=== PATIENT | female | born 1980 | race Caucasian/White ===

== ENCOUNTER 2022-09-10 09:36 | Emergency (ER) | payer OTHER ==
[2022-10-04 21:52] LABS: ESTIMATED GFR 81 mL/min (>60)
== END 2022-09-10 11:59 | disposition home or self-care (01) ==
LOC: JP.ED 09:36
DX: E83.51 Hypocalcemia (principal); R20.2 Paresthesia of skin; Z88.2 Allergy status to sulfonamides
CPT/HCPCS: 36415; 80048; 82040; 83735; 93005; 99285